=== PATIENT | male | born 1940 | race Caucasian/White ===

== ENCOUNTER → 2017-11-12 11:03 | Outpatient (REF) | payer MEDICARE, MEDICAID, SELFPAY ==
[2017-11-12 15:36] LABS: Amphetamine/Metha Screen,Urine Negative ng/mL (<1000); Barbiturates Screen,Urine Negative ng/mL (<200); Benzodiazepines Screen,Urine Negative ng/mL (200); Cannabinoid Screen,Urine Negative ng/mL (<50); Cocaine Screen,Urine Negative ng/g (<300); Methadone Screen,Urine Negative ng/mL (<300); Opiate Screen,Urine Negative ng/mL (<300); Phencyclidine Screen,Urine Negative ng/mL (<25)
== END ==
LOC: LAB 11:03
PROVIDERS: Visit Provider Nurse Practitioner Family
DX: Z79.899 Other long term (current) drug therapy (principal)
CPT/HCPCS: 80305

== ENCOUNTER → 2019-10-29 13:48 | Outpatient (CLI) | payer MEDICARE, MEDICAID, SELFPAY ==
[2019-10-29 15:20] LABS: Basophils # 0.1 K/mm3 (0-0.2); Basophils % 1.4 % (0.1-2.0); Eosinophils # 0.3 K/mm3 (0.0-0.4); Eosinophils % 3.6 % (0.1-12.0); Lymphocytes # 2.1 K/mm3 (0.7-4.5); Lymphocytes % 28.4 % (10-50); Mean Corpuscular HGB Conc 34.1 g/dL (31.8-35.4); Mean Corpuscular Hemoglobin 32.5 pg (27.0-31.2); Mean Corpuscular Volume 95.3 fl (80-94); Mean Platelet Volume 8.7 fl (7.4-10.4); Monocytes # 0.7 K/mm3 (0.1-1.0); Neutrophils # 4.2 K/mm3 (1.8-7.8); Neutrophils % 57.6 % (37.0-80.0); Platelet Count 244 K/mm3 (142-424); Red Blood Count 4.94 M/mm3 (4.60-6.20); Red Cell Distribution Width 16.3 % (11.5-17.5); White Blood Count 7.3 K/mm3 (4.8-10.8)
[2019-10-29 19:42] LABS: Alanine Aminotransferase 24 U/L (12-78); Albumin Level 3.8 gm/dL (3.4-5.0); Albumin/Globulin Ratio 1.2 (1.1-1.8); Alkaline Phosphatase 94 U/L (46-116); Anion Gap 18.5 mEq/L (5-15); Aspartate Amino Transferase 15 U/L (15-37); Bilirubin,Total 0.5 mg/dL (0.2-1.0); Blood Urea Nitrogen 22 mg/dL (7-18); Calcium 9.3 mg/dL (8.5-10.1); Carbon Dioxide 22 mmol/L (21.0-32.0); Chloride 104 mmol/L (98-107); Chol/HDL Ratio 5.3 (1-3.5); Cholesterol 233 mg/dL (140-200); Creatinine,Serum 1.41 mg/dL (0.70-1.30); Estimated Glomerular Filt Rate 48 ml/min (>60); GFR (African American) 59 ML/MIN (>60); Globulin 3.3 gm/dl (1.3-3.2); Glucose 100 mg/dL (74-106); HDL Cholesterol 44 mg/dL (27-67); LDL Cholesterol 157 mg/dL (0-130); Potassium 4.5 mmoL/L (3.5-5.1); Sodium 140 mmol/L (136-145); T4 (Thyroxine) 7.9 ug/dl (4.7-13.3); Total Protein,Serum 7.1 gm/dL (6.4-8.2); Triglycerides 161 mg/dL (30-200); VLDL Cholesterol 32 mg/dL (0-40)
[2019-10-30 09:46] LABS: Vitamin D 25 Hydroxy 16.8 ng/mL (30.0-100.0)
== END ==
PROVIDERS: Visit Provider Nurse Practitioner Family
DX: S61.219A Laceration without foreign body of unspecified finger without damage to nail, initial encounter; R53.83 Other fatigue; I10 Essential (primary) hypertension; E55.9 Vitamin D deficiency, unspecified
CPT/HCPCS: 80053; 80061; 82652; 84436; 84443; 85025

== ENCOUNTER 2020-03-20 12:59 | Emergency (ER) | payer MEDICARE, MEDICAID, SELFPAY ==
[2020-03-20 13:04] VITALS: BP 156/101; PULSE 89; RESP 18; TEMP 36.8; O2SAT 94; BMI 25.7
[2020-03-20 13:21] VITALS: BP 156/101; PULSE 89; RESP 18; TEMP 36.8; O2SAT 94; BMI 25.7
--- NOTE | 2020-03-20 13:23 | XR_ITS ---
PROCEDURE: XR SHOULDER LT MIN 2V CLINICAL INDICATION: fall Posttraumatic pain COMPARISON: No exams were available for comparison FINDINGS: Osteoarthritic change of glenohumeral joint and acromioclavicular joint. No acute fracture or dislocation. There is an old midshaft offset clavicular fracture. IMPRESSION: Degenerative change, no acute finding Old clavicle fracture Dictated by: Franky Marie MD 03/20/2020 13:56 Electronically signed by Franky Marie MD in [place] 03/20/2020 13:56
--- NOTE | 2020-03-20 13:23 | XR_ITS ---
PROCEDURE: XR HUMERUS LT CLINICAL INDICATION: fall Posttraumatic pain COMPARISON: XR SHOULDER LT MIN 2V from 03/20/2020 FINDINGS: There are osteoarthritic changes of the glenohumeral joint and acromioclavicular joint. No acute fracture or dislocation. No lytic or blastic change. There are well-circumscribed calcific densities at the lateral epicondylar region of the distal humerus consistent with old fractures or ununited ossification center. IMPRESSION: Degenerative changes of the shoulder. No acute finding Dictated by: Franky Marie MD 03/20/2020 13:55 Electronically signed by Franky Marie MD in [place] 03/20/2020 13:55
[2020-03-20 14:00] VITALS: BP 156/101; PULSE 89; RESP 18; TEMP 36.8; O2SAT 94
--- NOTE | 2020-03-20 14:02 | HMH.EDUTC ---
[facility] [place] Disposition Clinical Impression: Left upper arm pain Fall Qualifiers: Encounter type: initial encounter Qualified Code(s): W19.XXXA - Unspecified fall, initial encounter Left shoulder pain Qualifiers: Chronicity: acute Qualified Code(s): M25.512 - Pain in left shoulder Osteoarthritis of left shoulder Qualifiers: Osteoarthritis type: unspecified Qualified Code(s): M19.012 - Primary osteoarthritis, left shoulder Disposition: Home, Self-Care Condition on Discharge: Good Instructions: Shoulder Tendinopathy, DI for Shoulder Pain Additional Instructions: Rest the extremity, Elevate the extremity as tolerated while you are resting. Take ibuprofen for pain. Follow up with Dr. Chen (orthopedics). I put in a referral but you need to call her office and schedule an appointment. Follow up with your regular doctor. GO TO THE ER FOR ANY WORSENING SYMPTOMS Referrals: Jesenia Betancourt APRN [Primary Care Provider] - Rosa Chen MD [Physician] - Time of Disposition: 14:07 Medical Decision Making - Medical Records Medical records reviewed: No: I reviewed the patient's medical records. - Antione Inquiry Pt receiving controlled substance: No Vital Signs: 03/20/20 13:04 03/20/20 13:21 03/20/20 14:00 Temperature 98.2 F 98.2 F 98.2 F Temperature Source Oral Oral Pulse Rate 89 Pulse Rate [Radial] 89 89 Respiratory Rate 18 18 18 Blood Pressure 156/101 H Blood Pressure [Right Arm] 156/101 H 156/101 H Blood Pressure Mean [Right Arm] 119 119 Blood Pressure Source [Right Arm] Automatic Cuff Automatic Cuff Blood Pressure Position [Right Arm] Sitting Sitting 02 Sat by Pulse Oximetry 94 L 94 L Oxygen Delivery Method Room Air Room Air [facility] [place] HPI - General Stated complaint: AO fell a couple weeks ago, left arm inj Time Seen by Provider: 03/20/20 13:35 Mode of Arrival: Ambulatory Source of Information: Patient Limitations: No Limitations Description of Symptoms (Recalled from Triage Doc. by RN): PATIENT STATES HE FELL APPROX 2 WEEKS AGO AND INJURED LEFT ARM. HE STILL C/O LEFT SHOULDER AND UPPER ARM PAIN. ROM LIMITED, BUT BETTER THAN IT WAS BEFORE HEENT Symptoms (Recalled from RN notes): No Resp Symptoms (Recalled from RN notes): No Skin Symptoms (Recalled from RN notes): No MS Symptoms (Recalled from RN notes): Yes Functional Status (Recalled from RN notes): WNL - History of Present Illness Provider Complaint: He states that he fell approx 2 weeks ago. She injured his left shoulder when he fell. Since then, he has had pain with moving the shoulder. At first, he couldn't raise the arm over his head. Now, his symtoms are some better and he can raise the arm over his head, but he thought it would be completely better by now. - Related Data Previous Rx's Medication Instructions Recorded aspirin 81 mg tablet,delayed 81 mg PO DAILY #90 tab 10/29/19 release cholecalciferol (vitamin D3) 25 1,000 unit PO DAILY #90 cap 11/04/19 mcg (1,000 unit) capsule ergocalciferol (vitamin D2) 1,250 50,000 unit PO QWEEK 90 Days #12 11/04/19 mcg (50,000 unit) capsule cap tamsulosin 0.4 mg capsule See Rx Instructions .ROUTE 01/26/20 .COMPLEX #90 capsule Allergies Allergy/AdvReac Type Severity Reaction Status Date / Time No Known Allergies Allergy Verified 10/29/19 10:04 - Worker's Comp Is this a Worker's Comp case?: No [facility] History - Hepatitis A Screen Drug use history?: No High risk sexual behaviors?: No History of sexually transmitted infection?: No Currently employed?: No Childcare worker?: No Do you have indoor plumbing?: Yes Do you have electricity?: Yes Attestation statement:: This patient has been screened for Hepatitis A risk factors. I have reviewed the patient's past medical history: Yes Medical History: Reports:: BPH, MRSA Denies:: Diabetes Mellitus Type 1, Diabetes Mellitus Type 2, Lung Disease, Seizures Other Medical History: Reports: Other. Denies: Blood
== END 2020-03-20 14:05 | disposition home or self-care (01) ==
LOC: ER 13:04 → UTC 13:05
PROVIDERS: Emergency Provider Nurse Practitioner Family; PCP Nurse Practitioner Family
DX: M25.512 Pain in left shoulder (principal); M19.012 Primary osteoarthritis, left shoulder; F12.10 Cannabis abuse, uncomplicated; W01.0XXA Fall on same level from slipping, tripping and stumbling without subsequent striking against object, initial encounter; Y92.019 Unspecified place in single-family (private) house as the place of occurrence of the external cause
CPT/HCPCS: 73030; 73060; 99201

== ENCOUNTER 2020-04-24 08:05 | Emergency (ER) | payer MEDICARE, MEDICAID, SELFPAY ==
[2020-04-24 08:06] VITALS: BP 159/80; PULSE 66; RESP 18; TEMP 37.1; O2SAT 96; BMI 27.6
--- NOTE | 2020-04-24 08:22 | PC.NURSE ---
notified ER MD of pt presenting s/s, ER MD gave verbal orders on pt
--- NOTE | 2020-04-24 08:23 | CT_ITS ---
PROCEDURE: CT LUMBAR SPINE WO CON CLINICAL HISTORY: pain, no injury Low back pain, left sacroiliac pain, history of back surgery COMPARISON: No exams were available for comparison TECHNIQUE: Axial images obtained with sagittal and coronal reformats. All CT scans at the facility use one or more dose reduction, viz: automated exposure control, ma/kV adjustment per patient size (including targeted exams where dose is matched to indication, i.e. head), or iterative reconstruction technique. FINDINGS: There is straightening the lumbar lordosis with diffuse osteopenia. There is multilevel lumbar spondylosis. There is prominent multilevel anterior osteophytes. T10-T11: Moderate to severe canal stenosis with facet hypertrophic change. The canal measures 7 mm. There is bilateral lateral recess and foraminal narrowing greater on the left compared to the right. T11-T12: There is an old fracture of the medial aspect of the right 11th rib. Canal stenosis with facet ligamentum hypertrophy with bilateral lateral recess and foraminal narrowing greater on the left compared to the right T12-L1: Degenerate disc disease with facet and ligamentum hypertrophy with mild bilateral lateral recess and foraminal narrowing slightly greater on the left. L1-L2: Degenerative disc disease with facet ligamentum hypertrophy with severe canal stenosis, bilateral lateral recess narrowing, and bilateral foraminal narrowing left greater than right. L2-L3: Degenerate disc disease with facet and ligamentum hypertrophy. There has been a prior laminectomy at L2-L3. There is severe right-sided foraminal narrowing. There is mild anterior wedging of L3 with loss of height anteriorly of approximately 30 percent. This is age indeterminate. L3-L4: Degenerate disc disease with bulging disc. There is severe bilateral foraminal narrowing from facet and ligamentum hypertrophy. There are post laminectomy changes. There is mild loss of height anteriorly of L4 of approximately 20 percent. There is fusiform infrarenal dilatation of the abdominal aorta at 3.4 x 3.4 cm. Prominent left parapelvic renal cyst versus UPJ stenosis with hydronephrosis also noted. IMPRESSION: 1. Severe multilevel lumbar spondylosis with degenerative disc disease bulging disc facet ligamentum hypertrophy with resultant canal stenosis along with lateral recess and foraminal narrowing. Please see above for detailed description at each level. 2. Prior laminectomy at L3 and L4 3. Mild wedging of L3 and L4 age indeterminate without retropulsion 4. 3.4 cm infrarenal abdominal aortic aneurysm. 5. Left-sided UPJ stenosis with hydronephrosis versus parapelvic renal cyst Dictated by: Franky Marie MD 04/24/2020 09:25 Electronically signed by Franky Marie MD in [place] 04/24/2020 09:25
--- NOTE | 2020-04-24 08:23 | XR_ITS ---
PROCEDURE: XR HIP LT 2-3V W/PELVIS CLINICAL INDICATION: pain, no injury COMPARISON: CT LUMBAR SPINE WO CON from 04/24/2020 FINDINGS: No fracture or dislocation. No lytic or blastic change. There is normal mineralization. Prominent osteoarthritic changes are present involving both hips right greater than left. Multiple round calcific densities are present in the central pelvic region inferiorly suspicious for bladder stones. Coarse prostate calcification is also consideration. Other findings:None. IMPRESSION: Degenerative changes of the hips, no acute fracture. Bladder stones versus coarse prostate calcifications Dictated by: Franky Marie MD 04/24/2020 09:36 Electronically signed by Franky Marie MD in [place] 04/24/2020 09:36
--- NOTE | 2020-04-24 08:27 | PC.NURSE ---
rad notified of orders on pt, spoke with Bimal CHOUDHURY MD at [facility]
--- NOTE | 2020-04-24 08:30 | HMH.EDGENADL ---
ED Disposition Clinical Impression: Chronic pain, Hip abductor tendinitis Disposition: Home, Self-Care Condition on Discharge: Good Instructions: DI for Acute Pain -- Adult Prescriptions: Nabumetone 750 mg PO BID 10 Days #20 tab Transmission Status: Pending to [facility] Tizanidine HCl [Zanaflex 4mg tablet] 4 mg PO TID 10 Days #30 tab Transmission Status: Pending to [facility] Referrals: Jesenia Betancourt APRN [Primary Care Provider] - - Critical Care Critical Care Time: No Attestation: On 04/24/20, the high probability of a clinically significant, sudden or life threatening deterioration of the following system(s) required my full and direct attention, intervention and personal management. The time I documented below is in addition to time spent performing reported procedures but includes the following listed in this critical care notation. Medical Decision Making - Medical Records Medical records reviewed: Yes: I reviewed the patient's medical records. - Antione Inquiry Pt receiving controlled substance: No Vital Signs: 04/24/20 08:06 04/24/20 08:56 04/24/20 09:33 Temperature 98.7 F Temperature Source Oral Pulse Rate [Right Radial] 66 63 64 Respiratory Rate 18 18 20 Blood Pressure [Right Arm] 159/80 H 136/82 124/66 Blood Pressure Mean [Right Arm] 106 100 85 Blood Pressure Source [Right Arm] Automatic Cuff Automatic Cuff Automatic Cuff Blood Pressure Position [Right Arm] Sitting Sitting Sitting 02 Sat by Pulse Oximetry 96 96 95 Oxygen Delivery Method Room Air Room Air - Lab Data Lab results reviewed: Yes: I reviewed the patient's lab results. - Radiology Data #1 Image(s): Hip Preliminary Findings: Normal/NAD - CT Data CT Scan: L-Spine Time Received: 09:[address] Reviewed: Yes: I have viewed the radiologist's interpretation Preliminary Findings: Normal/NAD (IMPRESSION:) General Adult HPI - General Chief complaint: PAIN Stated complaint: left hip lower back pain Time Seen by Provider: 04/24/20 08:05 Mode of Arrival: Wheelchair Source of Information: [employer] Limitations: No Limitations Description of Symptoms (Recalled from ER Triage Doc. by RN): Pt c/o L lower back pain and L hip pain for approx 1 week. Pt states no accident of injury. Denies radiation of pain. - History of Present Illness HPI narrative: 79-year-old female presents the emergency department with left hip pain. He states he had no trauma that started hurting a few days prior. He states it does not feel like arthritis because his arthritis in his body moves. He states the pain is a sharp sensation and rates his pain 4 out of 10. He also says he is having some difficulty sleeping as well secondary to the pain. He states that exacerbating factors include movement and ambulation relieving factors include rest.Patient denies any recent cough or shortness of breath, patient denies any sore throat or headache, patient denies any loss of taste or smell, patient denies any malaise or fatigue, patient denies any abdominal pain nausea vomiting or diarrhea. - Related Data Home Medications Medication Instructions Recorded Confirmed Tamsulosin HCl 0.4 mg PO DAILY 04/24/20 04/24/20 Previous Rx's Medication Instructions Recorded aspirin 81 mg tablet,delayed 81 mg PO DAILY #90 tab 10/29/19 release cholecalciferol (vitamin D3) 25 1,000 unit PO DAILY #90 cap 11/04/19 mcg (1,000 unit) capsule ergocalciferol (vitamin D2) 1,250 50,000 unit PO QWEEK 90 Days #12 11/04/19 mcg (50,000 unit) capsule cap Nabumetone 750 mg PO BID 10 Days #20 tab 04/24/20 Tizanidine HCl [Zanaflex 4mg 4 mg PO TID 10 Days #30 tab 04/24/20 tablet] Allergies Allergy/AdvReac Type Severity Reaction Status Date / Time No Known Allergies Allergy Verified 10/29/19 10:04 [facility] [place] History - Hepatitis A Screen Drug use history?: No High risk sexual behaviors?: No History of sexually transmitted infection?: N
--- NOTE | 2020-04-24 08:50 | PC.NURSE ---
pt return from ct
[2020-04-24 08:56] VITALS: BP 136/82; PULSE 63; RESP 18; O2SAT 96
[2020-04-24 09:33] VITALS: BP 124/66; PULSE 64; RESP 20; O2SAT 95
[2020-04-24 10:14] VITALS: BP 135/84; PULSE 88; RESP 16; TEMP 36.6; O2SAT 98
== END 2020-04-24 10:21 | disposition home or self-care (01) ==
PROVIDERS: Emergency Provider Family Medicine; PCP Nurse Practitioner Family
DX: M76.02 Gluteal tendinitis, left hip (principal)
CPT/HCPCS: 72131; 73502; 96372; 99282

== ENCOUNTER → 2022-07-15 10:15 | Outpatient (CLI) | payer MEDICARE, MEDICAID, SELFPAY ==
[2022-07-15 14:57] LABS: Basophils # 0.2 K/mm3 (0-0.2); Basophils % 1.8 % (0.1-2.0); Eosinophils # 0.4 K/mm3 (0.0-0.4); Eosinophils % 5.2 % (0.1-12.0); Hematocrit 43.3 % (42.0-52.0); Hemoglobin 15.4 g/dL (14.1-18.0); Lymphocytes # 2.2 K/mm3 (0.7-4.5); Lymphocytes % 27.3 % (10-50); Mean Corpuscular HGB Conc 35.6 g/dL (31.8-35.4); Mean Corpuscular Hemoglobin 34.4 pg (27.0-31.2); Mean Corpuscular Volume 96.5 fl (80-94); Mean Platelet Volume 8.5 fl (7.4-10.4); Monocytes # 0.6 K/mm3 (0.1-1.0); Monocytes % 7.4 % (1.7-9.3); Neutrophils # 4.7 K/mm3 (1.8-7.8); Neutrophils % 58.3 % (37.0-80.0); Platelet Count 284 K/mm3 (142-424); Red Blood Count 4.49 M/mm3 (4.60-6.20); Red Cell Distribution Width 16.4 % (11.5-17.5); White Blood Count 8.1 K/mm3 (4.8-10.8)
[2022-07-15 15:00] LABS: Alanine Aminotransferase 19 U/L (12-78); Albumin Level 3.8 g/dl (3.5-5.0); Albumin/Globulin Ratio 1.2 (1.1-1.8); Alkaline Phosphatase 113 U/L (38-126); Anion Gap 13.9 mEq/L (5-15); Aspartate Amino Transferase 30 U/L (17-59); Bilirubin,Total 0.6 mg/dl (0.2-1.3); Blood Urea Nitrogen 14 mg/dl (9-20); Carbon Dioxide 29 mmol/L (22.0-30.0); Chloride 102 mmol/L (98-107); Chol/HDL Ratio 5.8 (1-3.5); Cholesterol 227 mg/dl (140-200); Estimated Glomerular Filt Rate 64 ml/min (>60); GFR (African American) 77 ML/MIN (>60); Globulin 3.2 g/dL (1.3-3.2); Glucose 88 mg/dl (74-100); HDL Cholesterol 39 mg/dl (40-60); Potassium 4.9 mmoL/L (3.5-5.1); Sodium 140 mmol/L (136-145); Triglycerides 171 mg/dl (30-150); VLDL Cholesterol 34 mg/dL (0-40)
[2022-07-15 15:11] LABS: Direct LDL Cholesterol 149.17 mg/dL (100-129)
[2022-07-15 15:17] LABS: 25-OH Vitamin D, Total 17.2 ng/mL (30-100)
[2022-07-15 15:18] LABS: Free T4 (Free Thyroxine) 1.17 ng/dl (0.78-2.19)
[2022-07-15 15:31] LABS: Thyroid Stimulating Hormone 3.07 uIU/mL (0.465-4.68)
== END ==
PROVIDERS: PCP Emergency Medicine; Visit Provider Emergency Medicine
DX: I65.22 Occlusion and stenosis of left carotid artery (principal); E78.2 Mixed hyperlipidemia; E55.9 Vitamin D deficiency, unspecified
CPT/HCPCS: 80053; 80061; 82306; 84439; 84443; 85025

== ENCOUNTER 2024-06-09 18:52 | Outpatient (CLI) | payer MEDICARE, MEDICAID, SELFPAY ==
[2024-06-09 19:07] LABS: Basophils # 0.1 K/mm3 (0-0.2); Basophils % 0.8 % (0.1-2.0); Eosinophils # 0.4 K/mm3 (0.0-0.4); Eosinophils % 4.4 % (0.1-12.0); Hematocrit 38.4 % (42.0-52.0); Hemoglobin 13.8 g/dL (14.1-18.0); Lymphocytes # 1.5 K/mm3 (0.7-4.5); Mean Corpuscular HGB Conc 35.9 g/dL (31.8-35.4); Mean Corpuscular Hemoglobin 33.7 pg (27.0-31.2); Mean Corpuscular Volume 93.9 fl (80-94); Mean Platelet Volume 9.6 fl (7.4-10.4); Monocytes # 0.6 K/mm3 (0.1-1.0); Monocytes % 7.2 % (1.7-9.3); Neutrophils % 69.6 % (37.0-80.0); Platelet Count 264 K/mm3 (142-424); Red Blood Count 4.09 M/mm3 (4.60-6.20); Red Cell Distribution Width 18.8 % (11.5-17.5); White Blood Count 8.6 K/mm3 (4.8-10.8)
[2024-06-09 19:32] LABS: Alanine Aminotransferase 12 U/L (12-78); Albumin Level 3.3 g/dl (3.5-5.0); Albumin/Globulin Ratio 1.1 (1.1-1.8); Alkaline Phosphatase 125 U/L (38-126); Anion Gap 9.7 mEq/L (5-15); Aspartate Amino Transferase 19 U/L (17-59); Bilirubin,Total 0.6 mg/dl (0.2-1.3); Blood Urea Nitrogen 10 mg/dl (9-20); Calcium 8.9 mg/dl (8.4-10.2); Carbon Dioxide 27 mmol/L (22.0-30.0); Chloride 105 mmol/L (98-107); Chol/HDL Ratio 2.9 (1-3.5); Cholesterol 106 mg/dl (140-200); Estimated Glomerular Filt Rate 80 ml/min (>60); GFR (African American) 97 ML/MIN (>60); Globulin 3.1 g/dL (1.3-3.2); Glucose 103 mg/dl (74-100); HDL Cholesterol 37 mg/dl (40-60); Potassium 3.7 mmoL/L (3.5-5.1); Sodium 138 mmol/L (136-145); Total Protein,Serum 6.4 g/dl (6.3-8.2); Triglycerides 92 mg/dl (30-150); VLDL Cholesterol 18 mg/dL (0-40)
[2024-06-09 19:43] LABS: Direct LDL Cholesterol 50.46 mg/dL (100-129)
[2024-06-09 19:48] LABS: 25-OH Vitamin D, Total 15.6 ng/mL (30-100)
[2024-06-09 20:03] LABS: Thyroid Stimulating Hormone 3.17 uIU/mL (0.465-4.68)
== END 2024-06-09 23:59 | disposition home or self-care (01) ==
LOC: LAB.DROPOF 18:52
PROVIDERS: PCP Nurse Practitioner Family; Visit Provider Nurse Practitioner Family
DX: E78.2 Mixed hyperlipidemia (principal); E78.5 Hyperlipidemia, unspecified; E55.9 Vitamin D deficiency, unspecified
CPT/HCPCS: 80050; 80053; 80061; 82306; 84443; 85025

== ENCOUNTER 2025-02-15 22:17 | Emergency (ER) | payer MEDICARE, MEDICAID, SELFPAY ==
--- NOTE | 2025-02-15 22:16 | ED_ITS ---
Discharge Plan Disposition Patient Disposition: Left Against Medical Advice Prescriptions Prescriptions: New cephalexin 500 mg capsule 500 mg PO Q6H 7 Days Qty: 28 0RF bacitracin 500 unit/gram ointment 1 applic topical BID Qty: 28 0RF No Action aspirin 81 mg tablet,delayed release (DR/EC) 81 mg PO DAILY Qty: 90 1RF atorvastatin 80 mg tablet 80 mg PO HS Qty: 90 3RF tamsulosin 0.4 mg capsule See Rx Instructions .ROUTE .COMPLEX Qty: 90 3RF Dose Instruction: TAKE 1 CAPSULE BY MOUTH DAILY FOR PROSTATE Rx Instructions: TAKE 1 CAPSULE BY MOUTH DAILY FOR PROSTATE Referrals Follow up/Referrals: Provider,Referral, [Primary Care Provider] - See instructions Activity Restrictions/Add. Instructions Additional Instructions/Restrictions: You are leaving the hospital AGAINST MEDICAL ADVICE wear the oxygen as directed. Take the prescribed antibiotics as directed, do not skip doses, do not stop taking them early. Shower/bathe like normal. Keep the wound clean and dry. Have the glendy removed in 7 to 10 days by your primary care doctor. Please immediately return to the ER for any new, worsening, or otherwise concerning symptoms. Clinical Impressions Clinical Impression: Fall, Laceration of scalp, Hypoxia, Aortic aneurysm Print Language Print Language: Micronesian Discharge ED Provider: Raleigh Angelo General Adult HPI <EDY Austin - Last Filed: 02/15/25 22:26> General Chief complaint: Fall Stated complaint: fall/laceration Time Seen by Provider: 02/15/25 22:19 History of Present Illness HPI narrative: Patient presents for evaluation after a fall. Patient unfortunately is a poor historian as he reportedly has dementia. Patient states that he tripped and fell off of his front porch. He does not recall if he lost consciousness. He does not know what he struck. There are no other family members to corroborate the story. He reports that he has pain in his left cranium where he has suffered 2 lacerations but denies neck pain chest pain back pain shortness of breath loss of motor or sensory. Related Data Previous Rx's ?Medication ?Instructions ?Recorded aspirin 81 mg tablet,delayed 81 mg PO DAILY thinner #90 tabs 07/01/24 release atorvastatin 80 mg tablet 80 mg PO HS #90 tabs 07/01/24 tamsulosin 0.4 mg capsule See Rx Instructions .Route 07/01/24 .COMPLEX #90 caps bacitracin 500 unit/gram topical 1 applic topical BID #28 grams 02/16/25 ointment cephalexin 500 mg capsule 500 mg PO Q6H 7 days #28 caps 02/16/25 Allergies Allergy/AdvReac Type Severity Reaction Status Date / Time No Known Allergies Allergy Verified 12/07/24 10:18 PFSH <EDY Austin - Last Filed: 02/15/25 22:26> PFS Disclaimer: The information contained in this section may have been updated after the patient was seen, as this information can be updated by other users. Social History Smoking Status: Never smoker alcohol intake: never substance use type: marijuana current occupational status: other Travel in the last 8 weeks?: Inside the [place] household members: spouse housing: apartment Have you lived/traveled outside [place] in past 30 days?: No Contact w/someone who lives/traveled outside US past 30 days?: No Exposure to someone with infectious disease in past 14 days?: No Do you have a fever (greater than 100.4 F or 38 C)?: No Have you tested positive for COVID-19?: No Exposed to someone with COVID-19 in past 14 days?: No Do you have a sore throat?: No Do you have a cough?: No Do you have any weakness?: No Do you have any diarrhea?: No Are you experiencing any unusual bleeding?: No Do you have any muscle aches/pain?: No Do you have any abdominal pain?: No Are you experiencing loss of taste or smell?: No Other Medical History Have you received the Flu Vaccine for this season: No Have you received the Pneumonia Vaccine: No <EDY Austin - Last Filed: 02/15/25 22:26> ROS Obtained: Yes Systems reviewed as appropriate & no additional complaints except as documented Physical Exam <EDY Austin - Last Filed: 02/15/25 22:26> General General appearance: alert and in no apparent distress Respiratory Respiratory exam: Present normal lung sounds bilaterally Cardiovascular Cardiovascular exam: Present regular rate Neurological Exam Neurological exam: Present alert and oriented X3 Medical Decision Making <EDY Austin Last Filed: 02/15/25 22:26> Medical Records Medical records reviewed: Yes I reviewed the patient's medical records. Screening: Per USPSTF and CDC recommendations, given the prevalence of disease in our region, it is our hospital?s policy to screen for HIV and viral Hepatitis for all patients aged 18 and over and those with ongoing risk factors. Antione Inquiry Pt receiving controlled substance: No Vital Signs: 02/15/25 22:17 Temperature 97.9 F Temperature Source Oral Pulse Rate [Right Radial] 79 Respiratory Rate 16 Blood Pressure [Right Arm] 143/80 H Blood Pressure Mean [Right Arm] 101 Blood Pressure Source [Right Arm] Automatic Cuff Blood Pressure Position [Right Arm] Supine 02 Sat by Pulse Oximetry 95 Oxygen Delivery Method Room Air Lab Data Lab results reviewed: Yes I reviewed the patient's lab results. Lab Results 02/15/25 22:12: WBC 10.3, RBC 4.68, Hgb 13.7 L, Hct 42.4, MCV 90.6, MCH 29.3, MCHC 32.3, RDW 15.4, Plt Count 219, MPV 9.0, Neut % (Auto) 63.4, Lymph % (Auto) 23.8, [place] % (Auto) 7.5, Eos % (Auto) 2.9, Baso % (Auto) 0.7, Neut # (Auto) 6.5, Lymph # (Auto) 2.4, [place] # (Auto) 0.8, Eos # (Auto) 0.3, Baso # (Auto) 0.1, Sodium 140, Potassium 4.2, Chloride 110 H, Carbon Dioxide 26, Anion Gap 8.2, BUN 21 H, Creatinine 1.20, Estimated Creat Clear 54, Estimated GFR 57 L, Est GFR ( Amer) 69, Glucose 100, Calcium 8.8, Total Bilirubin 0.6, AST 30, ALT 25, Alkaline Phosphatase 87, Troponin I < 0.01, Total Protein 7.0, Albumin 3.9, Globulin 3.1, Albumin/Globulin Ratio 1.3 02/15/25 22:29: PT 12.7 H, INR 1.15 H 02/15/25 22:12 02/15/25 22:12 Orders (Tests/Meds): ED MEDICATIONS Discontinued Medications Generic Name Dose Route Start Last Admin Trade Name Freq PRN Reason Stop Dose Admin Acetaminophen 1,000 mg 02/15/25 22:16 02/15/25 22:33 Acetaminophen 500mg Tab PO 02/15/25 22:17 1,000 mg ONCE ONE Administration Bacitracin 1 each 02/16/25 01:26 Bacitracin Oint 0.9gm Udp TP 02/16/25 01:27 ONCE ONE Cephalexin HCl 500 mg 02/15/25 22:16 02/15/25 22:32 Cephalexin 500mg Capsule PO 02/15/25 22:17 500 mg ONCE ONE Administration Sodium Chloride 1,000 mls @ 999 mls/hr 02/15/25 22:16 02/15/25 22:32 Sod Chlor 0.9% 1000ml Bag IV 02/15/25 23:16 999 mls/hr .Q1H1M ONE Administration Iopamidol 160 ml 02/15/25 23:16 02/15/25 23:17 Iopamidol-370 (76%);100ml Bottle IV 02/15/25 23:17 160 ml ONCE ONE Administration Lidocaine/Epinephrine 5 ml 02/15/25 23:54 02/16/25 00:10 Lidocaine 1% W/Epi 1:100,000 20ml Vial IJ 02/15/25 23:55 5 ml ONCE ONE Administration Ondansetron HCl 4 mg 02/15/25 22:16 02/15/25 22:33 Ondansetron 4mg/2ml Vial IV 02/15/25 22:17 4 mg ONCE ONE Administration Sodium Chloride 50 ml 02/15/25 23:16 02/15/25 23:17 0.9 % Sodium Chloride 50 Ml Vial IV 02/15/25 23:17 50 ml ONCE ONE Administration Sodium Chloride 10 ml 02/15/25 23:16 02/15/25 23:17 Sodium Chloride 0.9% 10ml Syr (Rad Only) IV 02/15/25 23:17 10 ml ONCE ONE Administration Tetanus/Reduced Diphtheria/Acell Pertussis 0.5 ml 02/15/25 22:16 02/15/25 23:16 Tet/Diphth/Pert-Adult 0.5ml Syringe IM 02/15/25 22:17 0.5 ml .ONCE ONE Administration ORDERS Category Date Time Status CT angio abd/pel - TRAUMA Stat Cat Scan 02/15/25 22:[address] angio chest - dissection Stat Cat Scan 02/15/25 22:[address] angio head Stat Cat Scan 02/15/25 22:[address] angio neck Stat Cat Scan 02/15/25 22:[address] cervical spine wo con Stat Cat Scan 02/15/25 22:[address] head/brain wo con Stat Cat Scan 02/15/25 22:[address] lumbar spine wo con Stat Cat Scan 02/15/25 22:[address] thoracic spine wo con Stat Cat Scan 02/15/25 22:18 Completed Care Management Consult [Consult to Case Management] [ Cons 02/16/25 01:21 Active CONS] Routine CBC w/Auto Diff [Complete Blood Count Auto Diff] Stat Lab 02/15/25 22:12 Completed CMP [Comprehensive Metabolic Panel] Stat Lab 02/15/25 22:12 Completed INR [Prothrombin Time INR] Stat Lab 02/15/25 22:29 Completed Trop I [Troponin I] Stat Lab 02/15/25 22:12 Completed UA [Urinalysis and Microscopic] Stat Lab 02/15/25 22:16 Ordered UDS [Drug Screen,Urine] Stat Lab 02/15/25 22:16 Ordered ECG Request Stat Y 02/15/25 23:04 Ordered Medical Decision Narrative: In summary patient is a 84-year-old male who presents to the emergency department for evaluation of fall off of his porch. Patient is hemodynamically stable with a blood pressure 143/80 heart rate 79 with normal sinus rhythm apparently on the bedside monitor breathing 16 times a minute satting at 95% on room air upon arrival, with a temperature of 97.9. Physical exam reveals a well-nourished well-developed 84-year-old gentleman who does not appear to be in acute distress. He is a poor historian but can tell me that he fell off the porch he thinks that he fell he does not think that he lost consciousness. He does report that he has pain in the left cranium. He has 2 lacerations near the posterior aspect of his scalp 1 is semicircular the other 1 appears to be packed with dirt. Currently hemostatic. No palpable bony deformity. Pupils equal round reactive to light without icterus. Oropharynx pink moist patent. Neck is supple with no posterior C-spine tenderness dorsal spine shows no evidence of abrasions or contusions. He has no palpable bony deformities of the dorsal spine. Breath sounds clear and equal bilaterally to the bases without adventitious sounds. Is no chest wall tenderness on palpation. Examination abdomen reveals to be soft nontender no rebound or guarding no rigidity. Bowel sounds normal active. Patient moves all 4 extremities actively with no focal neurologic deficits. Cranial nerves II through XII are intact grossly to exam. On secondary survey patient appears to have what appears to be vomitus on his left lower extremity but patient does not recall if he vomited. He also does not recall whether he definitively lost consciousness or not.. Differential diagnosis includes closed head injury versus skull fracture versus other bony fracture versus head bleed etc. Initial workup will be conducted with full trauma scan AMIN hematologic labs urinalysis urine drug screen. Initial interventions include Tdap Keflex Tylenol and Zofran for now along with continuous cardiac monitoring and pulse oximetry. Initial workup ordered and pending at the time of handoff to Dr. Angelo at 2230 <Raleigh Angelo MD - Last Filed: 02/15/25 23:14> Vital Signs: 02/15/25 22:17 Temperature 97.9 F Temperature Source Oral Pulse Rate [Right Radial] 79 Respiratory Rate 16 Blood Pressure [Right Arm] 143/80 H Blood Pressure Mean [Right Arm] 101 Blood Pressure Source [Right Arm] Automatic Cuff Blood Pressure Position [Right Arm] Supine 02 Sat by Pulse Oximetry 95 Oxygen Delivery Method Room Air Lab Data Lab Results 02/15/25 22:12: WBC 10.3, RBC 4.68, Hgb 13.7 L, Hct 42.4, MCV 90.6, MCH 29.3, MCHC 32.3, RDW 15.4, Plt Count 219, MPV 9.0, Neut % (Auto) 63.4, Lymph % (Auto) 23.8, [place] % (Auto) 7.5, Eos % (Auto) 2.9, Baso % (Auto) 0.7, Neut # (Auto) 6.5, Lymph # (Auto) 2.4, [place] # (Auto) 0.8, Eos # (Auto) 0.3, Baso # (Auto) 0.1, Sodium 140, Potassium 4.2, Chloride 110 H, Carbon Dioxide 26, Anion Gap 8.2, BUN 21 H, Creatinine 1.20, Estimated Creat Clear 54, Estimated GFR 57 L, Est GFR ( Amer) 69, Glucose 100, Calcium 8.8, Total Bilirubin 0.6, AST 30, ALT 25, Alkaline Phosphatase 87, Troponin I < 0.01, Total Protein 7.0, Albumin 3.9, Globulin 3.1, Albumin/Globulin Ratio 1.3 02/15/25 22:29: PT 12.7 H, INR 1.15 H Orders (Tests/Meds): ED MEDICATIONS Discontinued Medications Generic Name Dose Route Start Last Admin Trade Name Freq PRN Reason Stop Dose Admin Acetaminophen 1,000 mg 02/15/25 22:16 02/15/25 22:33 Acetaminophen 500mg Tab PO 02/15/25 22:17 1,000 mg ONCE ONE Administration Bacitracin 1 each 02/16/25 01:26 Bacitracin Oint 0.9gm Udp TP 02/16/25 01:27 ONCE ONE Cephalexin HCl 500 mg 02/15/25 22:16 02/15/25 22:32 Cephalexin 500mg Capsule PO 02/15/25 22:17 500 mg ONCE ONE Administration Sodium Chloride 1,000 mls @ 999 mls/hr 02/15/25 22:16 02/15/25 22:32 Sod Chlor 0.9% 1000ml Bag IV 02/15/25 23:16 999 mls/hr .Q1H1M ONE Administration Iopamidol 160 ml 02/15/25 23:16 02/15/25 23:17 Iopamidol-370 (76%);100ml Bottle IV 02/15/25 23:17 160 ml ONCE ONE Administration Lidocaine/Epinephrine 5 ml 02/15/25 23:54 02/16/25 00:10 Lidocaine 1% W/Epi 1:100,000 20ml Vial IJ 02/15/25 23:55 5 ml ONCE ONE Administration Ondansetron HCl 4 mg 02/15/25 22:16 02/15/25 22:33 Ondansetron 4mg/2ml Vial IV 02/15/25 22:17 4 mg ONCE ONE Administration Sodium Chloride 50 ml 02/15/25 23:16 02/15/25 23:17 0.9 % Sodium Chloride 50 Ml Vial IV 02/15/25 23:17 50 ml ONCE ONE Administration Sodium Chloride 10 ml 02/15/25 23:16 02/15/25 23:17 Sodium Chloride 0.9% 10ml Syr (Rad Only) IV 02/15/25 23:17 10 ml ONCE ONE Administration Tetanus/Reduced Diphtheria/Acell Pertussis 0.5 ml 02/15/25 22:16 02/15/25 23:16 Tet/Diphth/Pert-Adult 0.5ml Syringe IM 02/15/25 22:17 0.5 ml .ONCE ONE Administration ORDERS Category Date Time Status CT angio abd/pel - TRAUMA Stat Cat Scan 02/15/25 22:[address] angio chest - dissection Stat Cat Scan 02/15/25 22:[address] angio head Stat Cat Scan 02/15/25 22:[address] angio neck Stat Cat Scan 02/15/25 22:[address] cervical spine wo con Stat Cat Scan 02/15/25 22:[address] head/brain wo con Stat Cat Scan 02/15/25 22:[address] lumbar spine wo con Stat Cat Scan 02/15/25 22:[address] thoracic spine wo con Stat Cat Scan 02/15/25 22:18 Completed Care Management Consult [Consult to Case Management] [ Cons 02/16/25 01:21 Active CONS] Routine CBC w/Auto Diff [Complete Blood Count Auto Diff] Stat Lab 02/15/25 22:12 Completed CMP [Comprehensive Metabolic Panel] Stat Lab 02/15/25 22:12 Completed INR [Prothrombin Time INR] Stat Lab 02/15/25 22:29 Completed Trop I [Troponin I] Stat Lab 02/15/25 22:12 Completed UA [Urinalysis and Microscopic] Stat Lab 02/15/25 22:16 Ordered UDS [Drug Screen,Urine] Stat Lab 02/15/25 22:16 Ordered ECG Request Stat Y 02/15/25 23:04 Ordered Medical Decision Narrative: In summary patient is a 84-year-old male who presents to the emergency department for evaluation of fall off of his porch. Patient is hemodynamically stable with a blood pressure 143/80 heart rate 79 with normal sinus rhythm apparently on the bedside monitor breathing 16 times a minute satting at 95% on room air upon arrival, with a temperature of 97.9. Physical exam reveals a well-nourished well-developed 84-year-old gentleman who does not appear to be in acute distress. He is a poor historian but can tell me that he fell off the porch he thinks that he fell he does not think that he lost consciousness. He does report that he has pain in the left cranium. He has 2 lacerations near the posterior aspect of his scalp 1 is semicircular the other 1 appears to be packed with dirt. Currently hemostatic. No palpable bony deformity. Pupils equal round reactive to light without icterus. Oropharynx pink moist patent. Neck is supple with no posterior C-spine tenderness dorsal spine shows no evidence of abrasions or contusions. He has no palpable bony deformities of the dorsal spine. Breath sounds clear and equal bilaterally to the bases without adventitious sounds. Is no chest wall tenderness on palpation. Examination abdomen reveals to be soft nontender no rebound or guarding no rigidity. Bowel sounds normal active. Patient moves all 4 extremities actively with no focal neurologic deficits. Cranial nerves II through XII are intact grossly to exam. On secondary survey patient appears to have what appears to be vomitus on his left lower extremity but patient does not recall if he vomited. He also does not recall whether he definitively lost consciousness or not.. Differential diagnosis includes closed head injury versus skull fracture versus other bony fracture versus head bleed etc. Initial workup will be conducted with full trauma scan AMIN hematologic labs urinalysis urine drug screen. Initial interventions include Tdap Keflex Tylenol and Zofran for now along with continuous cardiac monitoring and pulse oximetry. Initial workup ordered and pending at the time of [facility] Upon assumption of care patient was hemodynamically stable. He was pending full trauma imaging as well as secondary survey at time of transfer of care to the oncoming physician, Dr. Mercado. <Real Mercado MD - Last Filed: 02/16/25 01:45> Vital Signs: 02/15/25 22:17 Temperature 97.9 F Temperature Source Oral Pulse Rate [Right Radial] 79 Respiratory Rate 16 Blood Pressure [Right Arm] 143/80 H Blood Pressure Mean [Right Arm] 101 Blood Pressure Source [Right Arm] Automatic Cuff Blood Pressure Position [Right Arm] Supine 02 Sat by Pulse Oximetry 95 Oxygen Delivery Method Room Air Lab Data Lab Results 02/15/25 22:12: WBC 10.3, RBC 4.68, Hgb 13.7 L, Hct 42.4, MCV 90.6, MCH 29.3, MCHC 32.3, RDW 15.4, Plt Count 219, MPV 9.0, Neut % (Auto) 63.4, Lymph % (Auto) 23.8, [place] % (Auto) 7.5, Eos % (Auto) 2.9, Baso % (Auto) 0.7, Neut # (Auto) 6.5, Lymph # (Auto) 2.4, [place] # (Auto) 0.8, Eos # (Auto) 0.3, Baso # (Auto) 0.1, Sodium 140, Potassium 4.2, Chloride 110 H, Carbon Dioxide 26, Anion Gap 8.2, BUN 21 H, Creatinine 1.20, Estimated Creat Clear 54, Estimated GFR 57 L, Est GFR ( Amer) 69, Glucose 100, Calcium 8.8, Total Bilirubin 0.6, AST 30, ALT 25, Alkaline Phosphatase 87, Troponin I < 0.01, Total Protein 7.0, Albumin 3.9, Globulin 3.1, Albumin/Globulin Ratio 1.3 02/15/25 22:29: PT 12.7 H, INR 1.15 H Orders (Tests/Meds): ED MEDICATIONS Discontinued Medications Generic Name Dose Route Start Last Admin Trade Name Pato PRN Reason Stop Dose Admin Acetaminophen 1,000 mg 02/15/25 22:16 02/15/25 22:33 Acetaminophen 500mg Tab PO 02/15/25 22:17 1,000 mg ONCE ONE Administration Bacitracin 1 each 02/16/25 01:26 Bacitracin Oint 0.9gm Udp TP 02/16/25 01:27 ONCE ONE Cephalexin HCl 500 mg 02/15/25 22:16 02/15/25 22:32 Cephalexin 500mg Capsule PO 02/15/25 22:17 500 mg ONCE ONE Administration Sodium Chloride 1,000 mls @ 999 mls/hr 02/15/25 22:16 02/15/25 22:32 Sod Chlor 0.9% 1000ml Bag IV 02/15/25 23:16 999 mls/hr .Q1H1M ONE Administration Iopamidol 160 ml 02/15/25 23:16 02/15/25 23:17 Iopamidol-370 (76%);100ml Bottle IV 02/15/25 23:17 160 ml ONCE ONE Administration Lidocaine/Epinephrine 5 ml 02/15/25 23:54 02/16/25 00:10 Lidocaine 1% W/Epi 1:100,000 20ml Vial IJ 02/15/25 23:55 5 ml ONCE ONE Administration Ondansetron HCl 4 mg 02/15/25 22:16 02/15/25 22:33 Ondansetron 4mg/2ml Vial IV 02/15/25 22:17 4 mg ONCE ONE Administration Sodium Chloride 50 ml 02/15/25 23:16 02/15/25 23:17 0.9 % Sodium Chloride 50 Ml Vial IV 02/15/25 23:17 50 ml ONCE ONE Administration Sodium Chloride 10 ml 02/15/25 23:16 02/15/25 23:17 Sodium Chloride 0.9% 10ml Syr (Rad Only) IV 02/15/25 23:17 10 ml ONCE ONE Administration Tetanus/Reduced Diphtheria/Acell Pertussis 0.5 ml 02/15/25 22:16 02/15/25 23:16 Tet/Diphth/Pert-Adult 0.5ml Syringe IM 02/15/25 22:17 0.5 ml .ONCE ONE Administration ORDERS Category Date Time Status CT angio abd/pel - TRAUMA Stat Cat Scan 02/15/25 22:[address] angio chest - dissection Stat Cat Scan 02/15/25 22:[address] angio head Stat Cat Scan 02/15/25 22:[address] angio neck Stat Cat Scan 02/15/25 22:[address] cervical spine wo con Stat Cat Scan 02/15/25 22:[address] head/brain wo con Stat Cat Scan 02/15/25 22:[address] lumbar spine wo con Stat Cat Scan 02/15/25 22:[address] thoracic spine wo con Stat Cat Scan 02/15/25 22:18 Completed Care Management Consult [Consult to Case Management] [ Cons 02/16/25 01:21 Active CONS] Routine CBC w/Auto Diff [Complete Blood Count Auto Diff] Stat Lab 02/15/25 22:12 Completed CMP [Comprehensive Metabolic Panel] Stat Lab 02/15/25 22:12 Completed INR [Prothrombin Time INR] Stat Lab 02/15/25 22:29 Completed Trop I [Troponin I] Stat Lab 02/15/25 22:12 Completed UA [Urinalysis and Microscopic] Stat Lab 02/15/25 22:16 Ordered UDS [Drug Screen,Urine] Stat Lab 02/15/25 22:16 Ordered ECG Request Stat Y 02/15/25 23:04 Ordered Medical Decision Narrative: In summary patient is a 84-year-old male who presents to the emergency department for evaluation of fall off of his porch. Patient is hemodynamically stable with a blood pressure 143/80 heart rate 79 with normal sinus rhythm apparently on the bedside monitor breathing 16 times a minute satting at 95% on room air upon arrival, with a temperature of 97.9. Physical exam reveals a well-nourished well-developed 84-year-old gentleman who does not appear to be in acute distress. He is a poor historian but can tell me that he fell off the porch he thinks that he fell he does not think that he lost consciousness. He does report that he has pain in the left cranium. He has 2 lacerations near the posterior aspect of his scalp 1 is semicircular the other 1 appears to be packed with dirt. Currently hemostatic. No palpable bony deformity. Pupils equal round reactive to light without icterus. Oropharynx pink moist patent. Neck is supple with no posterior C-spine tenderness dorsal spine shows no evidence of abrasions or contusions. He has no palpable bony deformities of the dorsal spine. Breath sounds clear and equal bilaterally to the bases without adventitious sounds. Is no chest wall tenderness on palpation. Examination abdomen reveals to be soft nontender no rebound or guarding no rigidity. Bowel sounds normal active. Patient moves all 4 extremities actively with no focal neurologic deficits. Cranial nerves II through XII are intact grossly to exam. On secondary survey patient appears to have what appears to be vomitus on his left lower extremity but patient does not recall if he vomited. He also does not recall whether he definitively lost consciousness or not.. Differential diagnosis includes closed head injury versus skull fracture versus other bony fracture versus head bleed etc. Initial workup will be conducted with full trauma scan AMIN hematologic labs urinalysis urine drug screen. Initial interventions include Tdap Keflex Tylenol and Zofran for now along with continuous cardiac monitoring and pulse oximetry. Initial workup ordered and pending at the time of handoff to Dr. Angelo at 2230 [place] Angelo: Upon assumption of care patient was hemodynamically stable. He was pending full trauma imaging as well as secondary survey at time of transfer of care to the oncoming physician, Dr. Mercado. Mercado: Upon my assumption of care patient is resting comfortably. He states he has some ache in the left side of his head where the lacerations are but otherwise does not complain of pain. I agree with the assessment and plan from Dr. Angelo and the SYLVIA. When patient came back from CT he was hypoxic to the low 80s on room air but describe no chest pain or shortness of breath. He reports no history of lung problems but was placed on 2 L of nasal cannula. I personally interpreted CTs and appreciate no acute osseous injury of the spine though there are significant degenerative changes. I also do not appreciate any acute intracranial bleed, or skull fracture. On the CTA chest there is aortic aneurysm but no evidence of dissection, patient does not have any chest pain. He has significant emphysematous changes as well as scarring versus atelectasis versus pulmonary contusion. Pulmonary contusion could explain his hypoxia, but so could emphysema that has never previously been managed. There is an abdominal aortic aneurysm as well without evidence of dissection or leak. Patient has no abdominal pain. See radiology reads for full interpretations. Incidental findings were reported to patient and family. ECG personally interpreted demonstrates sinus rhythm with first-degree AV block normal axis, normal QTc, no STEMI. Labs reviewed by me demonstrate no leukocytosis, mild anemia, PT/INR nonactionable, CMP with trace prerenal azotemia but patient is tolerating oral intake, initial troponin undetectably low less than 0.01 which is significantly reassuring since patient reports he did not have syncope preceding his fall and that it was in fact a mechanical fall. Lacerations were repaired. See procedure note for details. Secondary survey aside from the lacerations and hypoxia is otherwise reassuring with no areas of tenderness or other appreciated wounds. Abdominal exam normal, nontender. Lungs clear bilaterally despite hypoxia. I explained to the patient and his POA (his son) at bedside that I recommended consult and transfer to trauma center for concerns of pulmonary contusion as well as for evaluations of the aortic aneurysms. Patient is adamantly against this and refuses it. His POA agrees with the patient. They do not want consultation or transfer. I discussed the risks of aortic aneurysms that have not been evaluated or managed as well as the risks of pulmonary contusion that are not closely managed. He does not care. Patient reports that he is ready to and does not want any interventions, consultations, or transfer. He also does not want to be admitted to the hospital. He would prefer to sign out AMA. I expressed the severe risks associated with aortic aneurysm if it were to rupture and with pulmonary contusion as they often progressively worsen for multiple days before they improve. Patient and POA understand but POA wants to honor the patient's wishes and the patient is able to clearly express that he wants to go home. He is also fully oriented at this time and exhibiting no evidence of confusion regarding the situation. I had turned off the patient's oxygen and he again became hypoxic. I recommended he be admitted at least for oxygen treatment which he again refuses. I explained to the patient and family that he needed oxygen. They requested home oxygen. POA is agreeable to everything that the patient wants and is wanting to completely respect his wishes despite them being AGAINST MEDICAL ADVICE. There was shared decision making between the POA and the patient since the patient does have mild dementia. Ultimately they both came to the conclusion that the patient wanted to be allowed to go home but did want oxygen. Patient is hypoxic at rest down in the low 80s and any exertion makes it worse, due to hypoxia unable to perform 6-minute walk test. Patient does require home oxygen. Mark was contacted and they are able to come to the hospital tonight. Prescription provided for oxygen. Patricia educated the patient and family on oxygen use and helped them with the concentrator. Consult to care management placed to follow-up on the patient's oxygen use at home and ensure there are no issues with it. DNR/DNI was signed by the patient's POA. He also signed the patient out AMA at the patient's request. Patient and POA were able to explain back to me their concerning conditions and the risks of leaving up to and including wosening of condition, severe life altering disability, or . Patient and POA are able to provide reason for this decision and clearly express this decision. Patient has capacity to make this decision and is fully oriented at this time, his POA also has capacity to make this decision, and the patient left AGAINST MEDICAL ADVICE. Prior to leaving, prescription for oxygen and the oxygen concentrator was provided to the patient. He was also prescribed cephalexin and bacitracin for wound management. Procedures <Real Mercado MD - Last Filed: 02/16/25 01:45> Laceration Laceration 1: Site: scalp Side (If applicable): left Size (cm): 4 Description: linear and contaminated Depth: involves subcutaneous layer Local Anesthetic: lidocaine 1% and with epi Amount of anesthesia used (mL): 2 Pre-repair: wound explored and irrigated extensively Skin layer closed with: other (glendy) Number of sutures: 5 Laceration 2: Site: scalp Side (If applicable): left Size (cm): 5 Description: flap, irregular (c-shaped) and contaminated Depth: involves subcutaneous layer Local Anesthetic: lidocaine 1% and with epi Amount of anesthesia used (mL): 3 Pre-repair: wound explored and irrigated extensively Skin layer closed with: other (glendy) Number of sutures: 7 Laceration 3: Site: scalp Size (cm): 2 Description: linear and contaminated Depth: simple, single layer and involves subcutaneous layer Pre-repair: wound explored and irrigated extensively Skin layer closed with: other (glendy) Number of sutures: 2 Critical Care <EDY Austin - Last Filed: 02/15/25 22:26> Critical Care Time Critical Care Time: Yes Attestation: On 02/15/25, the high probability of a clinically significant, sudden or life threatening deterioration of the following system(s) required my full and direct attention, intervention and personal management. The time I documented below is in addition to time spent performing reported procedures but includes the following listed in this critical care notation. Total Time Total Critical Care Time: 30
[2025-02-15 22:17] VITALS: BP 143/80; PULSE 79; RESP 16; TEMP 36.6; O2SAT 95; BMI 25.7
--- NOTE | 2025-02-15 22:18 | CT_ITS ---
PROCEDURE INFORMATION: Exam: CTA Neck With Contrast Exam date and time: 02/15/2025 11:06 PM Age: 84 years old Clinical indication: Injury or trauma; Additional info: Fell off the porch laceration to left cranium TECHNIQUE: Imaging protocol: Computed tomographic angiography of the neck with contrast. Exam focused on the cervical segments of the vasculature. 3D rendering (Not supervised by radiologist): MIP and/or 3D reconstructed images were created by the technologist. Radiation optimization: All CT scans at this facility use at least one of these dose optimization techniques: automated exposure control; mA and/or kV adjustment per patient size (includes targeted exams where dose is matched to clinical indication); or iterative reconstruction. Contrast material: ISOVUE; Contrast volume: 80 ml; Contrast route: INTRAVENOUS (IV); COMPARISON: CT CERVICAL SPINE WO CON 02/15/2025 10:57 PM FINDINGS: Right common carotid artery: No stenosis. No dissection or occlusion. Right internal carotid artery: No stenosis of the extracranial segment. No dissection or occlusion. Right external carotid artery: No occlusion or stenosis of the origin. Left common carotid artery: No stenosis. No dissection or occlusion. Left internal carotid artery: There is near total occlusion at the origin of the internal carotid artery with a uniformly small caliber opacify artery distal to the origin. Left external carotid artery: No occlusion or stenosis of the origin. Right vertebral artery: No stenosis. No dissection or occlusion. Left vertebral artery: No stenosis. No dissection or occlusion. Soft tissues: Normal. No significant soft tissue swelling. Bones/joints: There is an old healed left clavicular fracture. Lungs: There are mild emphysematous changes at the lung apices. There is interstitial disease more apices in a peripheral distribution consistent with chronic disease. Other findings: Motion artifact degrades the study. IMPRESSION: 1. 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 2. No significant stenosis of the right ICA. REFERENCES: NASCET CRITERIA. The degree of stenosis in the cervical segment of the internal carotid artery is based on NASCET criteria. Normal is no stenosis. Mild is less than 50% stenosis. Moderate is 50-69% stenosis. Severe is 70% to 99% stenosis. Total occlusion is no detectable patent lumen.
--- NOTE | 2025-02-15 22:18 | CT_ITS ---
PROCEDURE INFORMATION: Exam: CTA Abdomen and Pelvis With Contrast Exam date and time: 02/15/2025 11:09 PM Age: 84 years old Clinical indication: Injury or trauma; Additional info: Fell off the porch laceration to left cranium TECHNIQUE: Imaging protocol: Computed tomographic angiography of the abdomen and pelvis with contrast. Exam focused on the arteries. 3D rendering (Not supervised by radiologist): MIP and/or 3D reconstructed images were created by the technologist. Radiation optimization: All CT scans at this facility use at least one of these dose optimization techniques: automated exposure control; mA and/or kV adjustment per patient size (includes targeted exams where dose is matched to clinical indication); or iterative reconstruction. Contrast material: ISOVUE; Contrast volume: 80 ml; Contrast route: INTRAVENOUS (IV); COMPARISON: CR XR HIP LT 2-3V W/PELVIS 04/24/2020 8:30 AM FINDINGS: Aorta: Severe atherosclerosis with infrarenal aneurysm of the abdominal aorta measuring up to 3.3 x 3.4 cm without dissection.The visualized aortic branch vessels are patent. Celiac trunk and mesenteric arteries: Patent. Severe stenosis involving ostium. Renal arteries: No occlusion or significant stenosis. Assessment limited by coarse calcification at the ostia. Right iliac arteries: No occlusion or significant stenosis. Left iliac arteries: No occlusion or significant stenosis. Liver: No mass. Gallbladder and biliary ducts: Unremarkable. No calcified stones. No ductal dilation. Pancreas: Unremarkable. No mass. No ductal dilation. Spleen: Unremarkable. No splenomegaly. Adrenal glands: Tiny nodule(s) bilateral adrenals measuring less than or equal to 1 cm likely adenoma(s) statistically speaking. No follow-up required at this time. Kidneys and ureters: Bilateral likely benign renal cysts are present, requiring no further evaluation, as large as 5 cm. No hydroureteronephrosis. Stomach and bowel: Fecal impaction and distension of the rectum without wall thickening and surrounding inflammation could suggest proctitis.Diverticulosis is present without diverticulitis. No obstruction. Appendix: No evidence of appendicitis. Intraperitoneal space: Nonspecific mild inflammation small bowel mesentery mid abdomen possibly panniculitis. Lymph nodes: Unremarkable. No enlarged lymph nodes. Urinary bladder: Unremarkable. No mass. Reproductive: Unremarkable as visualized. Bones/joints: There is diffuse osteopenia which somewhat limits bony assessment. Old fracture right inferior pubic ramus. No acute fracture identified. Diffuse degenerative changes of the bones. Soft tissues: Unremarkable. IMPRESSION: 1. No acute process identified. 2. 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 3. Nonspecific velasquez mesentery mid abdomen possibly panniculitis. 4. Recommend correlation with the body the report for further details regarding additional nonemergent findings. 5. Recommend correlation with accompanying CTA of the chest for further details.
--- NOTE | 2025-02-15 22:18 | CT_ITS ---
PROCEDURE INFORMATION: Exam: CT Thoracic Spine Without Contrast Exam date and time: 02/15/2025 11:00 PM Age: 84 years old Clinical indication: Injury or trauma; Additional info: Fell off the porch laceration to left cranium TECHNIQUE: Imaging protocol: Computed tomography of the thoracic spine without contrast. Radiation optimization: All CT scans at this facility use at least one of these dose optimization techniques: automated exposure control; mA and/or kV adjustment per patient size (includes targeted exams where dose is matched to clinical indication); or iterative reconstruction. COMPARISON: CTA chest 02/16/2025. FINDINGS: Bones/joints: There is diffuse osteopenia which somewhat limits bony assessment. No acute displaced fracture identified. There are mild chronic compression fractures of the mid and lower thoracic spine. Diffuse spondylosis results in multi segmental canal and foraminal stenosis of variable degree.There is diffuse idiopathic skeletal hyperostosis of the spine. Soft tissues: Unremarkable. IMPRESSION: 1. No acute displaced fracture identified. 2. Mild chronic mid and lower thoracic compression fractures. 3. Diffuse osteopenia and spondylosis as described.
--- NOTE | 2025-02-15 22:18 | CT_ITS ---
PROCEDURE INFORMATION: Exam: CT Cervical Spine Without Contrast Exam date and time: 02/15/2025 10:57 PM Age: 84 years old Clinical indication: Injury or trauma; Additional info: Fell off the porch laceration to left cranium TECHNIQUE: Imaging protocol: Computed tomography of the cervical spine without contrast. Radiation optimization: All CT scans at this facility use at least one of these dose optimization techniques: automated exposure control; mA and/or kV adjustment per patient size (includes targeted exams where dose is matched to clinical indication); or iterative reconstruction. COMPARISON: CT CERVICAL SPINE WO CON 02/15/2025 10:57 PM FINDINGS: Bones: No acute fracture. There is a mild scoliosis convex left. There is mild degenerative anterolisthesis at C7-T1. There is moderate degenerative disc disease from C2 through C5. Moderate to severe degenerative disc disease is noted at C5-C6 and severe degenerative disc disease at C6-C7. Diffuse severe facet arthropathy is noted. No significant disc bulge or herniation. No severe spinal canal stenosis. There is multilevel significant bony foraminal stenosis. Lungs: Chronic changes at the lung apices. Soft tissues: Unremarkable. IMPRESSION: No acute cervical spine fracture.
--- NOTE | 2025-02-15 22:18 | CT_ITS ---
PROCEDURE INFORMATION: Exam: CTA Head With Contrast, Arteriography Exam date and time: 02/15/2025 11:06 PM Age: 84 years old Clinical indication: Injury or trauma; Additional info: Fell off the porch laceration to left cranium TECHNIQUE: Imaging protocol: Computed tomographic angiography of the head with contrast. Exam focused on the arteries. 3D rendering (Not supervised by radiologist): MIP and/or 3D reconstructed images were created by the technologist. Radiation optimization: All CT scans at this facility use at least one of these dose optimization techniques: automated exposure control; mA and/or kV adjustment per patient size (includes targeted exams where dose is matched to clinical indication); or iterative reconstruction. Contrast material: ISOVUE; Contrast volume: 80 ml; Contrast route: INTRAVENOUS (IV); COMPARISON: CT HEAD/BRAIN WO CON 02/15/2025 10:54 PM FINDINGS: ANTERIOR CIRCULATION: Right internal carotid artery: Intracranial segment is patent with no significant stenosis. No aneurysm. Right middle cerebral artery: No occlusion or significant stenosis. No aneurysm. Right anterior cerebral artery: No occlusion or significant stenosis. No aneurysm. Left internal carotid artery: Intracranial segment is patent with no significant stenosis. No aneurysm. Left middle cerebral artery: No occlusion or significant stenosis. No aneurysm. Left anterior cerebral artery: No occlusion or significant stenosis. No aneurysm. POSTERIOR CIRCULATION: Right vertebral artery: No occlusion or significant stenosis. No aneurysm. Left vertebral artery: No occlusion or significant stenosis. No aneurysm. Basilar artery: No occlusion or significant stenosis. No aneurysm. Right posterior cerebral artery: No occlusion or significant stenosis. No aneurysm. Left posterior cerebral artery: No occlusion or significant stenosis. No aneurysm. Brain: Motion artifact degrades the intracranial images. Cerebral ventricles: No ventriculomegaly. Bones/joints: Unremarkable. No acute fracture. Soft tissues: Unremarkable. IMPRESSION: No large vessel stenosis or occlusion.
--- NOTE | 2025-02-15 22:18 | CT_ITS ---
PROCEDURE INFORMATION: Exam: CT Lumbar Spine Without Contrast Exam date and time: 02/15/2025 11:02 PM Age: 84 years old Clinical indication: Injury or trauma; Additional info: Fell off the porch laceration to left cranium TECHNIQUE: Imaging protocol: Computed tomography of the lumbar spine without contrast. Radiation optimization: All CT scans at this facility use at least one of these dose optimization techniques: automated exposure control; mA and/or kV adjustment per patient size (includes targeted exams where dose is matched to clinical indication); or iterative reconstruction. COMPARISON: CT LUMBAR SPINE WO CON 04/24/2020 8:41 AM. CTA abdomen pelvis 02/15/2025. FINDINGS: Bones/joints: There is diffuse osteopenia which somewhat limits bony assessment. No acute fracture is identified. There are stable chronic compression fractures of the lower thoracic spine and lumbar spine with the most prominent loss of vertebral height involving L3 where there is anterior wedging. There is posterior spinal decompression at L3-L4 and L4-L5. There is diffuse spondylosis resulting in multi segmental canal and foraminal stenosis of variable degree. Soft tissues: Unremarkable. IMPRESSION: 1. No acute fracture identified. 2. Stable chronic thoracolumbar compression fractures. 3. Osteopenia and diffuse spondylosis as described. 4. Post-operative change as described.
--- NOTE | 2025-02-15 22:18 | CT_ITS ---
PROCEDURE INFORMATION: Exam: CTA Chest With Contrast Exam date and time: 02/15/2025 11:09 PM Age: 84 years old Clinical indication: Injury or trauma; Additional info: Fell off the porch laceration to left cranium TECHNIQUE: Imaging protocol: Computed tomographic angiography of the chest with contrast. Exam focused on the arteries. 3D rendering (Not supervised by radiologist): MIP and/or 3D reconstructed images were created by the technologist. Radiation optimization: All CT scans at this facility use at least one of these dose optimization techniques: automated exposure control; mA and/or kV adjustment per patient size (includes targeted exams where dose is matched to clinical indication); or iterative reconstruction. Contrast material: ISOVUE; Contrast volume: 80 ml; Contrast route: INTRAVENOUS (IV); COMPARISON: CT ANGIO CHEST 02/15/2025 11:09 PM FINDINGS: Pulmonary arteries: Normal. No pulmonary emboli. Aorta: Moderate atherosclerosis of the thoracic aorta with aneurysmal dilatation of the ascending segment measuring 4.2 x 4.2 cm in greatest transverse dimension. No dissection. Lungs: Severe centrilobular emphysematous changes are present. Bullous change right lung base. Bilateral subpleural fibrosis, lower lobes greater than upper lobes. Otherwise, the lungs are clear. Pleural spaces: Unremarkable. No pneumothorax. No pleural effusion. Heart: Unremarkable. No cardiomegaly. No pericardial effusion. Lymph nodes: Unremarkable. No enlarged lymph nodes. Bones/joints: There is diffuse osteopenia which somewhat limits bony assessment. No acute bony process identified. Old fracture left clavicle. Diffuse spondylosis. Soft tissues: Unremarkable. IMPRESSION: 1. No acute process identified. 2. 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 3. Severe centrilobular emphysematous changes are present with mild superimposed subpleural fibrosis. 4. Recommend correlation with the accompanying CTA abdomen pelvis report for further details.
--- NOTE | 2025-02-15 22:18 | CT_ITS ---
PROCEDURE INFORMATION: Exam: CT Head Without Contrast Exam date and time: 02/15/2025 10:54 PM Age: 84 years old Clinical indication: Injury or trauma; Additional info: Fell off the porch laceration to left cranium TECHNIQUE: Imaging protocol: Computed tomography of the head without contrast. Radiation optimization: All CT scans at this facility use at least one of these dose optimization techniques: automated exposure control; mA and/or kV adjustment per patient size (includes targeted exams where dose is matched to clinical indication); or iterative reconstruction. COMPARISON: No relevant prior studies available. FINDINGS: Brain: There is prominent age related atrophy. No hemorrhage. There is significant periventricular white matter hypodensity consistent with chronic small vessel disease. No mass effect. 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 Cerebral ventricles: Ventricular enlargement secondary to parenchymal atrophy. Paranasal sinuses: Visualized sinuses are unremarkable. No fluid levels. Mastoid air cells: Visualized mastoid air cells are well aerated. Orbital cavities: The orbital contents are symmetric and normal. Bones: Unremarkable. No acute fracture. Soft tissues: There is a left frontoparietal scalp hematoma with associated laceration. IMPRESSION: No acute intracranial abnormality.
[2025-02-15 22:27] LABS: Basophils # 0.1 K/mm3 (0-0.2); Basophils % 0.7 % (0.1-2.0); Eosinophils # 0.3 Kmm3 (0.0-0.4); Eosinophils % 2.9 % (0.1-12.0); Hematocrit 42.4 % (42.0-52.0); Hemoglobin 13.7 g/dL (14.1-18.0); Immature Granulocytes # 0.17 10^3uL; Immature Granulocytes % 1.7 %; Lymphocytes # 2.4 K/mm3 (0.7-4.5); Lymphocytes % 23.8 % (10-50); Mean Corpuscular HGB Conc 32.3 g/dL (31.8-35.4); Mean Corpuscular Hemoglobin 29.3 pg (27.0-31.2); Mean Corpuscular Volume 90.6 fl (80-94); Monocytes # 0.8 K/mm3 (0.1-1.0); Monocytes % 7.5 % (1.7-9.3); Neutrophils # 6.5 K/mm3 (1.8-7.8); Neutrophils % 63.4 % (37.0-80.0); Nucleated Red Blood Cells # 0 10^3/uL; Nucleated Red Blood Cells % 0 %; Platelet Count 219 K/mm3 (142-424); Red Blood Count 4.68 M/mm3 (4.60-6.20); Red Cell Distribution Width 15.4 % (11.5-17.5); Red Cell Distribution Width-SD 50.5 fL; White Blood Count 10.3 K/mm3 (4.8-10.8)
[2025-02-15] MEDS: cephALEXin 500MG CAPSULE 500 MG PO (22:32)
[2025-02-15] MEDS: 0.9 % SODIUM CHLORIDE 1000ML 1,000 ML 999 ML IV (22:32)
[2025-02-15] MEDS: ACETAMINOPHEN 500MG TAB 1000 MG PO (22:33)
[2025-02-15] MEDS: ONDANSETRON 4MG/2ML VIAL 4 MG IV (22:33)
[2025-02-15 22:39] LABS: Alanine Aminotransferase 25 U/L (12-78); Albumin Level 3.9 g/dl (3.5-5.0); Albumin/Globulin Ratio 1.3 (1.1-1.8); Alkaline Phosphatase 87 U/L (38-126); Anion Gap 8.2 mEq/L (5-15); Aspartate Amino Transferase 30 U/L (17-59); Bilirubin,Total 0.6 mg/dl (0.2-1.3); Blood Urea Nitrogen 21 mg/dl (9-20); Calcium 8.8 mg/dl (8.4-10.2); Carbon Dioxide 26 mmol/L (22.0-30.0); Chloride 110 mmol/L (98-107); Creatinine Clearance Estimated 54 mL/min (50-200); Estimated Glomerular Filt Rate 57 ml/min (>60); GFR (African American) 69 ML/MIN (>60); Globulin 3.1 g/dL (1.3-3.2); Glucose 100 mg/dl (74-100); Potassium 4.2 mmoL/L (3.5-5.1); Sodium 140 mmol/L (136-145)
[2025-02-15 22:49] LABS: INR 1.15 (0.9-1.1); Prothrombin Time 12.7 seconds (10.1-12.5)
[2025-02-15 22:58] LABS: Troponin I < 0.01 ng/ml (0.00-0.034)
[2025-02-15] MEDS: TET/DIPHTH/PERT-ADULT 0.5ML SYRINGE 0.5 ML IM (23:16)
[2025-02-15] MEDS: SODIUM CHLORIDE 0.9% 10ML SYR (RAD ONLY) 10 ML IV (23:17)
[2025-02-15] MEDS: 0.9 % SODIUM CHLORIDE 50 ML VIAL IV (23:17)
[2025-02-15] MEDS: IOPAMIDOL-370 (76%);100ML BOTTLE 160 ML IV (23:17)
[2025-02-16] MEDS: LIDOCAINE 1% W/EPI 1:100,000 20ML VIAL 5 ML IJ (00:10)
--- NOTE | 2025-02-16 00:39 | ECG_ITS ---
APPROVED REPORT Exam: Resting ECG HR:98 bpm ECG Measurements Heart Rate 98 AXES ND 241 P 40 QRSd 96 QRS -9 QT 347 T -7 QTc 402 Conclusion SINUS RHYTHM WITH FIRST DEGREE AV BLOCK VOLTAGE CRITERIA FOR LVH [MEETS CRITERIA IN ONE OF: R(aVL), S(V1), R(V5), R(V5/V6)+S(V1)] No STEMI Electronically signed by : VISHNU ROBB, 02/17/2025 03:24:25
--- NOTE | 2025-02-16 01:04 | PC.NURSE ---
[facility] en route to bring oxygen for patient
[2025-02-16] MEDS: BACITRACIN OINT 0.9GM UDP 1 EACH TP (01:32)
[2025-02-16 01:51] VITALS: BP 152/87; PULSE 94; RESP 20; TEMP 36.6; O2SAT 97
== END 2025-02-16 02:00 | disposition left against medical advice (07) ==
PROVIDERS: Physician Assistant; Emergency Provider Emergency Medicine
DX: R09.02 Hypoxemia (principal); I71.21 Aneurysm of the ascending aorta, without rupture; S01.01XA Laceration without foreign body of scalp, initial encounter; I44.0 Atrioventricular block, first degree; W17.89XA Other fall from one level to another, initial encounter; Z23 Encounter for immunization; Z66 Do not resuscitate
CPT/HCPCS: 12004; 70450; 70496; 70498; 71275; 72125; 72128; 72131; 74174; 80053; 84484; 85025; 85610; 90471; 90715; 93005; 96361; 96374; 99291; J2004; J2405; J7030; Q9967